=== PATIENT | female | born 1980 | race African-American/Black ===

== ENCOUNTER 2023-11-01 22:04 | Emergency (ER) | payer MEDICAID, OTHER ==
[~2023-11-01] VITALS: Ht 157.5 cm; Wt 79.0 kg
[2023-11-01 22:14] VITALS: O2SAT 97
[2023-11-01 22:57] LABS: BASOPHILS % 0.6 % (0.0-2.0); EOSINOPHILS % 0.6 % (0.0-5.0); HEMATOCRIT. 39.7 % (36.0-48.0); HEMOGLOBIN. 13.5 g/dL (12.0-16.0); LYMPHOCYTES % 16.9 % (20.0-50.0); MEAN CORPUSCULAR HEMOGLOBIN 30.8 pg (28.0-32.0); MEAN CORPUSCULAR VOLUME 90.5 fL (81.0-99.0); MEAN PLATELET VOLUME 9.1 fl (7.4-10.4); MONOCYTES % 7.2 % (2.0-8.0); NEUTROPHILS % 74.7 % (40.0-76.0); PLATELET 253 x1000/uL (130-400); RED BLOOD CELL COUNT 4.38 mill/uL (4.2-5.4); WHITE BLOOD COUNT 5.3 x1000/uL (4.5-11.0)
[2023-11-01 23:01] LABS: CHLORIDE 105 mEq/L (98-107); POTASSIUM 3.1 mEq/L (3.5-5.1); SODIUM 138 mEq/L (136-145)
[2023-11-01 23:02] LABS: CALCIUM 8.6 mg/dL (8.7-10.4); CARBON DIOXIDE 22 mEq/L (21-32)
[2023-11-01 23:04] LABS: HCG SCREEN NEGATIVE
[2023-11-01 23:07] LABS: CREATININE 1.2 mg/dL (0.6-1.0); GLUCOSE 108 mg/dL (70-105); UREA NITROGEN BLOOD 8 mg/dL (9-23)
[2023-11-01 23:08] LABS: ETHANOL BLOOD 224 mg/dL (<10)
[2023-11-01 23:09] LABS: ACETAMINOPHEN < 2 ug/mL (10-30); ALANINE AMINOTRANSFERASE 13 IU/L (10-49); ALBUMIN 4.5 g/dL (3.2-4.8); ASPARTATE AMINOTRANSFERASE 22 IU/L (<34); BILIRUBIN TOTAL 0.6 mg/dL (0.1-1.0)
[2023-11-01 23:10] LABS: PROTEIN TOTAL 7.7 g/dL (6.0-8.3)
[2023-11-02 02:29] VITALS: BP 110/70; PULSE 70; RESP 19; TEMP 97.8
[2023-11-02] MEDS: POTASSIUM CHLORIDE 20MEQ/PACKET PO NR (02:33)
== END 2023-11-02 02:44 | disposition home or self-care (01) ==
LOC: ER 22:04
DX: F10.129 Alcohol abuse with intoxication, unspecified (principal); I10 Essential (primary) hypertension; Y90.7 Blood alcohol level of 200-239 mg/100 ml
CPT/HCPCS: 80053; 80307; 80329; 80320; 84703; 85025; 36415; 99283; Z7610; G0480